=== PATIENT | female | born 1990 | race Caucasian/White ===

== ENCOUNTER 2022-11-30 08:23 | Emergency (ER) | payer OTHER, SELFPAY ==
[2022-11-30 08:40] VITALS: BP 114/72; PULSE 78; RESP 20; TEMP 37; O2SAT 98
--- NOTE | 2022-11-30 08:58 | ED.GENADULT ---
HPI - General Adult General Chief complaint: Allergic Reaction Stated complaint: swollen itchy face Time Seen by Provider: 11/30/22 08:36 History of Present Illness HPI narrative: Patient is a 32-year-old female who presents ER with itching and redness to her face. Began after returning home from the exercise in [place] where she is in a field exposed to allergens. This is happened to her before. No difficulty breathing or swallowing. No fevers or chills or sweats. No new medications at home. No alleviating factors. Related Data Allergies Allergy/AdvReac Type Severity Reaction Status Date / Time codeine Allergy Unknown VOMITING Verified 09/27/17 16:46 Penicillins Allergy Unknown * Verified 09/27/17 16:46 amoxicillin Allergy Unknown Verified 11/30/22 08:51 Review of Systems ENT: Denies dysphagia and Denies sore throat Respiratory: Respiratory: Denies cough and Denies dyspnea Integumentary/Breasts: Skin/Breast: Reports pruritus, Reports erythema, Reports rash and Denies skin ulcer PMFSH Past Medical History Medical History (Updated 11/30/22 @ 09:04 by Joseph Friend MD) Healthy female adult Surgical History Surgical History (Updated 11/30/22 @ 09:04 by Joseph Friend MD) No pertinent past surgical history Exam Narrative: GENERAL: Well-appearing, well-nourished, and in no acute distress. HEAD: Normocephalic, atraumatic. EYES: PERRL and EOMI. ENT: Mucous membranes moist. No edema of the lips or tongue. Normal-appearing posterior oropharynx. SKIN: Warm, dry. Mild dermatitis to the face with erythema noted mainly on the right side mild swelling along the right jawline. NEURO: Alert and oriented x3. PSYCH: Normal mood and affect. Course Course Emergency Course: Patient resting comfortably discussed treatment plan patient verbalized understanding. Recommend oral Zyrtec and Pepcid at home. Will prescribe prednisone. Vital Signs Vital signs: Vital Signs Temperature 98.6 F 11/30/22 08:40 Pulse Rate 78 11/30/22 08:40 Respiratory Rate 20 11/30/22 08:40 Blood Pressure 114/72 11/30/22 08:40 Pulse Oximetry 98 11/30/22 08:40 Oxygen Delivery Room Air 11/30/22 08:40 Temperature 98.6 F 11/30/22 08:40 Pulse Rate 78 11/30/22 08:40 Respiratory Rate 20 11/30/22 08:40 Blood Pressure 114/72 11/30/22 08:40 Pulse Oximetry 98 11/30/22 08:40 Oxygen Delivery Room Air 11/30/22 08:40 Medical Decision Making Vital Signs Vital Signs: Vital Signs Temperature 98.6 F 11/30/22 08:40 Pulse Rate 78 11/30/22 08:40 Respiratory Rate 20 11/30/22 08:40 Blood Pressure 114/72 11/30/22 08:40 Pulse Oximetry 98 11/30/22 08:40 Oxygen Delivery Room Air 11/30/22 08:40 Temperature 98.6 F 11/30/22 08:40 Pulse Rate 78 11/30/22 08:40 Respiratory Rate 20 11/30/22 08:40 Blood Pressure 114/72 11/30/22 08:40 Pulse Oximetry 98 11/30/22 08:40 Oxygen Delivery Room Air 11/30/22 08:40 Discharge Plan Discharge Clinical Impression: Contact dermatitis Patient Disposition: Home, Self-Care Condition: Stable Instructions: Contact Dermatitis (ED) Additional Instructions: Return to the ER if you cannot breathe, you cannot swallow, you have fever over 100.4 ?F, you have additional concerns. Prescriptions: New prednisone 20 mg tablet 20 mg PO DAILY Qty: 14 0RF Follow-up/Referrals: UNKNOWN,DOCTOR [Primary Care Provider] - 1 Week
== END 2022-11-30 09:24 | disposition home or self-care (01) ==
LOC: ANHED 09:04
PROVIDERS: Emergency Provider Emergency Medicine
DX: L25.9 Unspecified contact dermatitis, unspecified cause (principal)
CPT/HCPCS: 99283

== ENCOUNTER 2023-08-03 12:16 | Emergency (ER) | payer OTHER, SELFPAY ==
[2023-08-03 12:59] VITALS: BP 116/93; PULSE 96; RESP 16; TEMP 36.4; O2SAT 99
--- NOTE | 2023-08-03 13:54 | ED.FEMALEGU ---
HPI - Female Genitourinary General Chief complaint: Urogenital-Female Stated complaint: IRRITATION TO GENITAL AREA Time Seen by Provider: 08/03/23 13:36 History of Present Illness HPI Narrative: Patient is a 32-year-old healthy female here with general sores and pain. Patient states that on July 23 she had receptive oral sex with an ex partner. She states that her ex partner it tends to bite her when she gives oral sex and immediately afterwards she noticed a sore near her clitoris. She notes worsening of pain since that time and a sore that has continued near her clitoris. She notes it is itchy, not particularly painful. She notes her partner has another sexual partner, unsure of their sexual history, was concerned for possible STD exposure. Denies vaginal bleeding or discharge. No history of STI. No dysuria or hematuria. Related Data Allergies Allergy/AdvReac Type Severity Reaction Status Date / Time codeine Allergy Unknown VOMITING Verified 09/27/17 16:46 Penicillins Allergy Unknown * Verified 09/27/17 16:46 amoxicillin Allergy Unknown Verified 11/30/22 08:51 Review of Systems Review of Systems: All systems reviewed & are unremarkable except as noted in HPI and below PMFSH Past Medical History Medical History (Updated 08/03/23 @ 17:46 by Areli Tabares MD) Healthy female adult Surgical History Surgical History (Updated 11/30/22 @ 09:04 by Joseph Friend MD) No pertinent past surgical history Exam Narrative: GENERAL: Well-appearing, well-nourished, and in no acute distress. HEAD: Normocephalic, atraumatic. EYES: PERRLA and EOMI. ENT: Nares clear. Mucous membranes moist. NECK: Supple. CHEST: Clear to auscultation. No respiratory distress. HEART: Regular rate and rhythm. Normal peripheral pulses. ABDOMEN: Soft, nontender, nondistended. 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 Patient has a 1 cm circular lesion on the durán of the clitoris with no surrounding erythema. She additionally has a 2 mm ulceration on the right labia majora without any surrounding erythema. Both of these are fairly non tender. Trace physiologic vaginal discharge seen in the vaginal vault, no CMT. EXTREMITIES: Normal range of motion. No edema. SKIN: Warm, dry, no rash. NEURO: No focal deficits. Alert and oriented x3. PSYCH: Normal mood and affect. Course Course Emergency Course: Chart review performed. Patient here for genital sore after oral sex. Triage vitals normal. Patient seen evaluated, nontoxic appearing. Pelvic exam performed, 2 ulcerations appreciated. STI swabs performed. Will treat empirically for HSV, will await gonorrhea, chlamydia, Trichomonas testing. UA negative, gonorrhea, chlamydia, Trichomonas negative. Will start patient on antivirals for suspected HSV. Will additionally start on keflex for concern of a worsening traumatic lesion near her clitoris that is worsening. The results of pertinent diagnostic studies and exam findings were discussed. The patient?s provisional diagnosis and plan of care were discussed with the patient and present family. The patient and/or present family expressed understanding of the diagnosis and plan. The nurse was instructed to provide written instructions and appropriate follow-up information. The patient understands their need and responsibility to obtain additional follow-up as instructed. The risks of medications administered and prescribed were discussed with the patient and family present. Vital Signs Vital signs: Vital Signs Temperature 97.6 F 08/03/23 12:59 Pulse Rate 96 08/03/23 12:59 Respiratory Rate 16 08/03/23 12:59 Blood Pressure 116/93 H 08/03/23 12:59 Pulse Oximetry 99 08/03/23 12:59 Temperature 98.8 F 08/03/23 18:05 Pulse Rate 80 08/03/23 18:05 Respiratory Rate 16 08/03/23 18:05 Blood Pressure 112/69 08/03/23 18:05 Pulse Oximetry 100 08/03/23 18:05 MDM - Female Genitourinary Lab Data Labs:
[2023-08-03 15:01] LABS: Appearance Urine Clear (Clear); Bilirubin Urine Negative (Negative); Blood Urine Negative (Negative); Color Urine Yellow (Yellow); Glucose Urine UA Negative (Negative); Ketones Urine 1+ mg/dL (Negative); Leukocyte Esterase Ur Negative LEU/UL (Negative); Nitrate Urine Negative (Negative); Protein Urine Negative (Negative); Specific Grav Ur 1.008 (1.001-1.035); Urobilinogen Urine 0.2 mg/dL (<2.0)
[2023-08-03 15:04] LABS: Add Urine Microscopic? NO
[2023-08-03 17:07] LABS: Trichomonas Vag PCR NOT DETECTED (NOT DETECTE)
[2023-08-03 17:28] LABS: Chlamydia trachomatis NOT DETECTED (NOT DETECTE); Neisseria gonorrhoeae PCR NOT DETECTED (NOT DETECTE)
[2023-08-03 18:05] VITALS: BP 112/69; PULSE 80; RESP 16; TEMP 37.1; O2SAT 100
[2023-08-03] MEDS: DOXYCYCLINE HYCLATE 100 MG TABLET PO (18:05)
[2023-08-03] MEDS: ACYCLOVIR 400 MG TABLET PO (18:05)
[2023-08-05 23:17] LABS: Bacterial Vaginosis Positive (Negative)
== END 2023-08-03 18:07 | disposition home or self-care (01) ==
PROVIDERS: Emergency Provider Student in an Organized Health Care Education/Training Program
DX: N89.8 Other specified noninflammatory disorders of vagina (principal)
CPT/HCPCS: 81003; 81025; 81513; 87491; 87591; 87661; 99284; A9270